=== PATIENT | female | born 1980 | race Caucasian/White ===

== ENCOUNTER 2025-03-23 13:38 | Emergency (ER) | payer OTHER, SELFPAY ==
[2025-03-23 13:46] VITALS: BP 114/69; PULSE 87; TEMP 37.2; O2SAT 99; BMI 38.1
[2025-03-23 13:50] VITALS: BP 114/69
[2025-03-23 13:59] VITALS: O2SAT 98
[2025-03-23 14:00] VITALS: O2SAT 99
--- NOTE | 2025-03-23 14:02 | ECG_ITS ---
[facility] Test Date: 2025-03-23 Pat Name: ZAIRA MIGUEL Department: Room: - Gender: Female Shrinker: : 1980 Requested By: [id number] Order Number: [id number] Reading MD: Jose Hair Measurements Intervals [place] Rate: 69 P: 51 UT: 178 QRS: 93 QRSD: 88 T: 79 QT: 400 QTc: 420 Interpretive Statements 1100 Sinus rhythm 1470 with occasional supraventricular premature complexes 7102 Moderate right axis deviation 8102 Low QRS voltage in chest leads 9140 abnormal rhythm ECG No previous ECG available for comparison Electronically Signed On 03-23-2025 15:54:52 EST by Jose Hair
[2025-03-23 14:08] LABS: Hematocrit 39.5 % (36.0-48.0); Hemoglobin 13.5 g/dL (12.0-16.0); Immature Granulocytes Abs Auto 0.02 10^3/uL (0.00-0.03); Immature Granulocytes Pct Auto 0.3 % (0.0-0.5); Lymphocytes Absolute Auto 1.8 10^3/uL (1.2-3.8); Mean Corpuscular HGB Conc 34.2 g/dL (29.9-35.2); Mean Corpuscular Hemoglobin 31.8 pg (26.7-34.0); Mean Corpuscular Volume 92.9 fL (81.0-99.0); Platelet Count 254 10^3/uL (150-450); Red Blood Count 4.25 10^6/uL (4.20-5.40); White Blood Count 6.4 10^3/uL (4.0-11.0)
[2025-03-23] MEDS: KETOROLAC TROMETHAMINE 30 MG/ML VIAL IVP (14:18)
[2025-03-23] MEDS: 0.9 % SODIUM CHLORIDE 1,000 ML 1000 ML IV (14:20)
[2025-03-23] MEDS: PROCHLORPERAZINE 10 MG/2 ML VIAL 5 MG IV (14:20)
--- OUTSIDE RECORDS SUMMARY | 2025-03-23 14:23 | XMS_ITS | Continuity of Care Document ---
[facility] [address] [place] [address] Phone [phone] Care Team Providers Care Palliative Care Nurse Name Role Phone Holli Alfaro MD Care Team Information Receiv er Unavailable KAJAL ABRAHAM MD Care Team Information Rece iver Unavailable Holli Alfaro MD Primary Care Physician Unava ilable
--- OUTSIDE RECORDS SUMMARY | 2025-03-23 14:23 | XMS_ITS | Encounter Summary ---
Author Organization [facility] Address [address] [place] [address] Care Team Providers Care Airbrush Artist Photography Name Role Phone Ammon Hardwick MD Unavailable [phone] Amna Mancuso CLEANING AND WASHING EQUIPMENT OPERATOR Unavailable [phone] Madeline Inman DO Primary Care Provider Herbert Dyson APRN.CLEANING AND WASHING EQUIPMENT OPERATOR Unavailable Source Comments In the event this information is protected by the Federal Confidentiality of Alcohol and Drug AbusePatient Records regulations: The Federal rules restrict any use of the information to criminally investigate or prosecute any alcohol or drug abuse patient.[facility] Encounter Details DateTypeDepartmentCare Team (Latest Contact Info)Ctezxbwhzog66/23/2025 Get Medical Advice Neurology [address] [place] [address] Chris Friedman V, MD [address] [place] [address] Seizures Social History Tobacco UseTypesPacks/DayYears UsedDateSmoking Tobacco: Every TcvVvpmrwmcjp537 Started: 02/21/2003; Last attempted to quit: 02/21/2023Smokeless Tobacco: Never Alcohol UseStandard Drinks/WeekCommentsYes0 (1 standard drink = 0.6 oz pure alcohol)former alcholic- relapse 06/06/21[facility] UtilitiesAnswerDate RecordedIn the past 12 months has the [employer], [employer], oil, or water [employer] threatened to shut off services in your home?No02/13/2024Social Connection and Isolation Panel AnswerDate RecordedIn a typical week, how many times do you talk on the phone with family, friends, or neighbors?More than three times a week02/13/2024How often do you get together with friends or relatives?Three times a week02/13/2024 How often do you attend methodist or mormonism services?More than 4 times per year 02/13/2024o you belong to any clubs or organizations such as methodist groups, unions, fraternal or athletic groups, or school groups?Yes02/13/2024How often do you attend meetings of the clubs or organizations you belong to?More than 4 times per year02/13/2024re you , , , , never , or living with a partner?Living with cotlivm2002/13/2024UDIT-CAnswerDate RecordedQ1: How often do you have a drink containing alcohol?Never02/13/2024Q2: How many drinks containing alcohol do you have on a typical day when you are drinking?Patient does not drink02/13/2024Q3: How often do you have six or more drinks on one occasion?Never02/13/2024Overall Financial Resource Strain (CARDIA) AnswerDate RecordedHow hard is it for you to pay for the very basics like food, housing, medical care, and heating?Not very hard02/13/2024HQ-2AnswerDate RecordedPHQ-2 ozhsq029Finmountainstar healthcare [place] of Occupational Health - Occupational Stress QuestionnaireAnswerDate RecordedDo you feel stress - tense, restless, nervous, or anxious, or unable to sleep at night because yourmind is troubled all the time - these days?Very much02/13/2024Exercise Vital SignAnswer Date RecordedOn average, how many days per week do you engage in moderate to strenuous exercise (like a brisk walk)?1 day02/13/2024On average, how many minutes do you engage in exercise at this level?0 min02/13/2024Hunger Vital Sign AnswerDate RecordedWithin the past 12 months, you worried that your food would run out before you got the money to buymore.Never true02/13/2024Within the past 12 months, the food you bought just didn't last and you didn't have money to get more.Sometimes true02/13/2024RAPARE - TransportationAnswerDate RecordedIn the past 12 months, has lack of transportation kept you from medical appointments or from getting medications?No02/13/2024In the past 12 months, has lack of transportation kept you from meetings, work, or from getting things needed for daily living?Yes02/13/2024Housing Stability Vital SignAnswerDate RecordedIn the last 12 months, was there a time when you were not able to pay the mortgage or rent on time?Yes12/13/2022In the last 12 months, how many places have you lived? In the last 12 months, was there a time when you did not have a steady place to sleep or slept in ashelter (including now)?No12/13/2022Housing Stability Vital SignAnswerDate RecordedIn the last 12 months, was there a time when you were not able to pay the mortgage or rent on time?No02/13/2024Number of Times Moved in the Last YearNot on file02/13/2024Homeless in the Last YearNot on file02/13/2024rea Deprivation IndexAnswerDate RecordedNational Score (1-100), lower number is lower ppwh658302/10/2025State Score (1-10), lower number is lower mzkm427Data from: https://www.neighborhoodatlas.medicine.[facility] [place].edu/. Last address used for hbuczrlyrvt[address]CommentsNoSex and Gender InformationValueDate RecordedSex Assigned at PlvsoHhnssz35/09/2020 12:17 AM EDTLegal FhcVbpvmq82/02/2012 9:26 AM ESTGender UbyztyifZtxwuf40/09/2020 12:17 AM EDTSexual JlqeqhoizbzTwjjjmqo09/09/2020 12:17 AM EDTOccupationIndustry Job Start DateJob End DateUnable to work currently due to epilepsyNot on fileNot on fileNot on filedocumented as of this encounter Functional Status * Are you deaf or do you have serious difficulty hearing?AnswerDate of TjtfwfwtvpPffcuzCr63/31/2024 9:59 AM Josy Esparza RN * Are you blind or do you have serious difficulty seeing, even when wearing glasses?AnswerDate of GqzvqocghqRxflhfBo62/31/2024 9:59 AM Josy Esparza RN * Do you have serious difficulty walking or climbing stairs?AnswerDate of QsdbspthoqObpzevPv84/31/2024 9:59 AM Josy Esparza RN * Do you have difficulty dressing or bathing?AnswerDate of AssessmentAuthorNo 04/22/2024 9:59 AM Josy Esparza RN * Because of a physical, mental, or emotional condition, do you have difficulty doing errands alone such as visiting a doctor's office or shopping?AnswerDate of YdhxysqsocRyqitiFl46/31/2024 9:59 AM Josy Esparza RN documented as of this encounter Mental Status * Because of a physical, mental, or emotional condition, do you have serious difficulty concentrating, remembering, or making decisions?AnswerEntry Date QprfapNk44/31/2024 9:59 AM Josy Esparza RN documented in this encounter Plan of Treatment DateTypeDepartmentCare Team (Latest Contact Info)Vvebkgfwjcn89/20/2026 3:20 PM ESTAppointment Mammography [address] [place] [address] documented as of this encounter Visit Diagnoses Not on filedocumented in this encounter Care Teams Team MemberRelationshipSpecialtyStart DateEnd Date Madeline Inman DO PCP - GeneralFamily Medicine11/30/20 Amomn Hardwick MD ReferringFamily Medicine12/06/18 Amna Mancuso CNP ReferringFamily Viwpwgqy56/14/19 Herbert Dyson, XAVIER.CLEANING AND WASHING EQUIPMENT OPERATOR [address] [place], [place] [id number] Care PartnerFamily Medicine07/25/24documented as of this encounter
--- OUTSIDE RECORDS SUMMARY | 2025-03-23 14:23 | XMS_ITS | Clinical Summary ---
Author Organization [facility] Address [address] [place] [address] Phone Care Team Providers Care Client Services Account Manager Name Role Phone Madeline Inman DO Primary Care Provider [phone] Selwyn Ardon MD Unavailable Allergies No known active allergies Medications MedicationSigDispense QuantityRefillsLast FilledStart DateEnd DateStatus naloxone (Narcan) 4 mg/0.1 mL nasal spray INHALE 0.1 ML other into the nostril for signs of accidental overdose 1 at 2 unit box09/30/2020ctive lacosamide (Vimpat) 200 mg tablet tablet Take 1 tablet (200 mg) by mouth 2 times a day.10/21/2014ctive topiramate (Topamax) 200 mg tablet Take 1 tablet (200 mg) by mouth twice a day. aware to take on day of procedure Active methylPREDNISolone (Medrol Dospak) 4 mg tablets Take by mouth. Follow schedule on package instructionsActive ARIPiprazole (Abilify) 15 mg tablet Take 1 tablet (15 mg) by mouth once daily.02/05/2023ctive clonazePAM (KlonoPIN) 0.5 mg tablet Indications:panic disorderTake 1 tablet by mouth every 12 hours if needed for anxiety.12/28/2022ctive FLUoxetine (PROzac) 40 mg capsule Take 1 capsule (40 mg) by mouth once daily.12/22/2022ctive hydrocortisone (Anusol-HC) 2.5 % rectal cream USE PER RECTUM TWICE A DAYActive meloxicam (Mobic) 15 mg tablet Indications:Resume 03/21/23Take 1 tablet (15 mg) by mouth once daily.02/20/2023 Active oxyCODONE-acetaminophen (Percocet) 5-325 mg tablet Take 1 tablet by mouth every 6 hours if needed.12/06/2022ctive traZODone (Desyrel) 50 mg tablet Take 1 tablet (50 mg) by mouth once daily at bedtime.02/05/2023ctive gabapentin (Neurontin) 800 mg tablet Take 1 tablet (800 mg) by mouth 4 times a day.02/16/2023ctive lacosamide (Vimpat) 50 mg tablet TAKE 2 TABLETS BY MOUTH DAILY WITH BREAKFAST AND 1 TABLET DAILY AT BEDTIME 02/07/2023ctive topiramate (Topamax) 100 mg tablet Take 1 tablet (100 mg) by mouth 3 times a day.02/16/2023ctive ondansetron (Zofran) 4 mg tablet Indications:Primary osteoarthritis of right hipTake 1 tablet (4 mg) by mouth every 8 hours if needed for nausea or vomiting. 12 tablet 03/14/2023 4:43 PM EST03/14/2023ctive cyclobenzaprine (Flexeril) 10 mg tablet Indications:Primary osteoarthritis of right hipTake 0.5 tablets (5 mg) by mouth 3 times a day. 21 tablet 03/14/2023 4:43 PM EST03/14/2023ctive aspirin 81 mg chewable tablet Indications:Primary osteoarthritis of right hipChew 1 tablet (81 mg) in mouth 2 times a day. 60 tablet 03/14/2023 4:43 PM EST03/14/2023ctive apixaban (Eliquis) 5 mg (74 tabs) tablet Indications:Single subsegmental pulmonary embolism without acute cor pulmonale, Acute chest painTake 2 tablets (10 mg) by mouth 2 times a day for 7 days, then take 1 tablet (5 mg) by mouth 2 times a day. 74 tablet 02/12/2024ctive amoxicillin (Amoxil) 500 mg capsule Indications:S/P total right hip arthroplastyTake 4 capsules by mouth 1 hour before dental procedure and none after 4 capsule 5Active SUMAtriptan (Imitrex) 50 mg tablet SUMAtriptan Succinate 50 MG Oral Tablet Quantity: 9 Refills: 0 Start : 28-Sep-2014 Erompu98iscontinued(Med List Cleanup) albuterol (Ventolin HFA) 90 mcg/actuation inhaler Ventolin HFA 108 (90 Base) MCG/ACT Inhalation Aerosol Solution Quantity: 18 Refills: 0 Start : 01-Sep-2014 Nkuijz51iscontinued(Med List Cleanup) Active Problems ProblemNoted DateDiagnosed DateOA (osteoarthritis) of hip03/14/2023egenerative joint disease of right hip02/06/2023Acne1nxiety /08/2023 Cervical spondylosis without tqqdbabqsi74/08/2545Tmzqqikmqm01/08/2023 Wsqviyabpxws64/08/2023rand mal seizure jwwcbnyh28/08/2023Hypercholesteremia 01/28/2023Hypertrophy of vicdvp2101/28/2023Infection due to corynebacterium ocuszqrajxpc52/08/2324Udwlaxjl95/08/2023Open fracture of middle phalanx of ojwshr9701/28/2023Opioid use disorder, severe, gzertzqerb69/08/2023Reactive airway xmzxtpb3201/28/2023Spondylosis without myelopathy or njzlcsvrhfoht61/08/2023PTSD (post-traumatic stress disorder)01/28/2023Other benign neoplasm of skin of unspecified part of face01/28/2023Hip abductor hkoeddooid01/08/2023 Immunizations ImmunizationAdministration DatesNext DueTdap vaccine, age 7 year and older (BOOSTRIX, ADACEL)08/23/2020 Family History Medical HistoryRelationNameCommentsAlcohol abuseBrotherdrug addictionBrother Alcohol abuseMotherDepressionMotherbipolar affective disorder, current episode manic, current episode severity unspecifiedMotherdrug addictionMotherAlcohol abuseMother's Brotherbipolar affective disorder, current episode manic, current episode severity unspecifiedMother's Brotherdrug addictionMother's Brother Alcohol abuseMother's Sisterbipolar affective disorder, current episode manic, current episode severity unspecifiedMother's Sisterdrug addictionMother's Sister RelationNameStatusCommentsBrotherMotherMother's BrotherMother's Sister Social History Tobacco UseTypesPacks/DayYears UsedDateSmoking Tobacco: VmeazzHtmlzxacte133 02/21/2003 - 02/21/2023Smokeless Tobacco: Never Tobacco Cessation:Counseling Given: Not Answered Alcohol UseStandard Drinks/WeekCommentsNever0 (1 standard drink = 0.6 oz pure alcohol)OASIS D0700: Social IsolationAnswerDate RecordedFrequency of experiencing loneliness or udilnetoiCycyl21/13/2023OASIS A1250: Transportation AnswerDate RecordedLack of Transportation (Medical)No04/04/2023Lack of Transportation (Non-Medical)No04/04/2023atient Unable or Declines to RespondNo 04/04/2023OASIS B1300: Health LiteracyAnswerDate RecordedFrequency of needing help to read materials from doctor or salbzfinUzcci95/13/2023UDIT-CAnswerDate RecordedQ1: How often do you have a drink containing alcohol?Never03/14/2023Q2: How many drinks containing alcohol do you have on a typical day when you are drinking?Patient does not drink03/14/2023Q3: How often do you have six or more drinks on one occasion?Never03/14/2023Overall Financial Resource Strain (CARDIA) AnswerDate RecordedHow hard is it for you to pay for the very basics like food, housing, medical care, and heating?Not hard at all03/14/2023HQ-2AnswerDate RecordedPatient Health Questionnaire-2 Zisfq46805/14/2022RAPARE - Transportation AnswerDate RecordedIn the past 12 months, has lack of transportation kept you from medical appointments or from getting medications?No03/14/2023In the past 12 months, has lack of transportation kept you from meetings, work, or from getting things needed for daily living?No03/14/2023Housing Stability Vital SignAnswer Date RecordedIn the last 12 months, was there a time when you were not able to pay the mortgage or rent on time?No03/14/2023In the last 12 months, how many places have you lived?In the last 12 months, was there a time when you did not have a steady place to sleep or slept in [facility] (including now)?No 3CommentsNoSex and Gender InformationValueDate RecordedSex Assigned at FsstiQxdobx18/23/2024 9:33 AM ESTLegal AwaCgdpoa67/25/2022 4:48 PM ESTGender RgshiavyCrpqnz88/23/2024 9:33 AM ESTSexual OrientationStraight 03/15/2024 9:33 AM EST Last Filed Vital Signs Vital SignReadingTime TakenCommentsBlood Yfbkoytf454/7302/12/2024 4:22 AM EDT Lejtg919902/12/2024 4:22 AM QDGNfmciabsgnl42.4 ??C (97.5 ??F)02/11/2024 11:49 PM EDTRespiratory Jrww7287 4:22 AM EDTOxygen Fdjytjymns55%02/12/2024 4:22 AM EDTInhaled Oxygen Concentration--Wlqkim24.7 kg (200 lb)02/11/2024 11:49 PM DPJOeekzs400 cm (5' 3 )02/11/2024 11:49 PM EDTBody Mass Index35.431 11:49 PM EDT Plan of Treatment DateTypeDepartmentCare Team (Latest Contact Info)Biomowmztph51/05/2026 3:15 PM ESTOffice Visit [facility] [address] [address] Marco Sanders MD [address] [facility], [address] [place] [address] Health MaintenanceDue DateLast DoneCommentsCT Ynlivpdmdsao49/19/1980Colonoscopy 1979Colorectal Cancer Vutrugnjs52/19/1980FIT-DNA (Cologuard)1979FIT 1980HIV Dbupvrvjm34/19/1980Lipid Panel1979 5893Addpjrffaowns80/19/1980 Yearly Adult Txvygskp83/19/1980MMR Vaccines (1 of 1 - Standard series)11/08/1980 Hepatitis C Gibrjchzs89/19/1998Hepatitis B Vaccines (1 of 3 - 19+ 3-dose series) 11/08/1998HPV/Jkdktz3811/08/2000HPV Vaccines (1 - 3-dose standard series) 11/08/20068997Ufgrwmibb78/12/202506/03/2024, 10/03/2023, 06/07/2022, Additional history existsInfluenza Vaccine (#1)502/, 04/25/2018, 12/11/2016, Additional history existsCOVID-19 Vaccine ( - season) 2024ervical Cancer Teclidqmf32/21/2026Pap Smear/, 05/01/2011Pneumococcal Vaccine: Pediatrics and At-Risk Adult Patients (3 of 3 - PCV20 or PCV21), 01/11/2015Zoster Vaccines (1 of 2) 11/08/2029DTaP/Tdap/Td Vaccines (3 - Td or Tdap)/06/2020, 06/05/2014 Hepatitis A VaccinesAged Out10/11/2018No longer eligible based on patient's age to complete this topicHIB VaccinesAged OutNo longer eligible based on patient's age to complete this topicIPV VaccinesAged OutNo longer eligible based on patient's age to complete this topicMeningococcal VaccineAged OutNo longer eligible based on patient's age to complete this topicRotavirus VaccinesAged Out No longer eligible based on patient's age to complete this topic Medical Devices ImplantedTypeAreaManufacturerDevice IdentifierShelf Expiration DateModel / Serial / LotJuggerknot, 2.9mm, Dbl Loaded, P2 Max Braid, W/ Tapered Needle - [id number] Implanted:Qty: 1 on 03/14/2023 by Marco Sanders MD at [facility] ImplantRight: HipBIOMET [id number] / / [id number] Cup, Sector, Gripton, Size 54mm - [id number] Implanted:Qty: 1 on 03/14/2023 by Marco Sanders MD at [facility] Joint HipRight: [id number] / / [id number], Altrx, Neurtal, 36 X 54mm - [id number] Implanted:Qty: 1 on 03/14/2023 by Marco Sanders MD at [facility] Joint HipRight: [id number] / / [id number] Stem, Corail2, Std, Size 9 - [id number] Implanted:Qty: 1 on 03/14/2023 by Marco Sanders MD at [facility] Joint HipRight: [id number] / / [id number] Head, Ceramic 36 +1.5 - [id number] Implanted:Qty: 1 on 03/14/2023 by Marco Sanders MD at [facility] Joint HipRight: [id number] / / [id number] Positive [place] - [id number] Implanted:Qty: 1 on 03/14/2023 by Marco Sanders MD at [facility] JointRight: [id number] / / [id number] Cancellous 6.5 X 30 - [id number] Implanted:Qty: 1 on 03/14/2023 by Marco Sanders MD at [facility] ScrewRight: [id number] / / [id number] Procedures Procedure NamePriorityDate/TimeAssociated DiagnosisCommentsCONVERTED RELATIONSHIP ADVISOR XBRLKQJVBuuakfr02/09/2012 12:00 AM EST from Last 3 Months or Most Recently Relevant to Health Maintenance Results * CONVERTED RELATIONSHIP ADVISOR CYTOLOGY (05/01/2011 12:00 AM EST)ComponentValueRef RangeTest MethodAnalysis TimePerformed AtPathologist SignaturePathology Report ? Date of Procedure: ??05/01/2011 ? Pathologist: Date Reported: 05/03/2011 Date Received: ??05/02/2011 Submitting Physician: Conversion ? Other Related Clinical Data ?Additional data/reports from an outside/reference lab may be ? available on this specimen/case. ? Please contact the lab if you need additional information. - COMMENT ?? SPECIMEN SENT FOR HPV TESTING PER CLINICIAN'S REQUEST. ??A SEPARATE REPORT W ILL FOLLOW. FINAL CYTOLOGICAL INTERPRETATION Satisfactory for evaluation. Transformation zone insufficient. Negative for squamous intraepithelial lesion or malignancy. Fungal organisms morphologically c/w Yolanda species. - SCREENED BY: SHANIQUE PACHECO (ASCP) ? Note: ??Pap smear testing is a screening procedure and subject to both false negative and false positive results as evidenced by published data. Your patient's test result should be interpreted in this context, together with patient's history and clinical findings. ? - Signed by: ALISSA MUIR ?05/03/11 Electronically Signed Out By [facility], Cytology/ By the signature on this report, the individual or group listed as making the Final Interpretation/Diagnosis certifies that they have reviewed this case. Educational Note: Cervical cytology is a screening procedure primarily for squamous cancers and precursors and has associated false-negative and false-positive results as evidenced by published data. ??Your patient's test should be interpreted in this context, together with patient's history and clinical findings. ??Regular sampling and follow-up of unexplained clinical signs and symptoms are recommended to minimize false negative results. Clinical History Date of Last Menstrual Period: ? (Not Entered) - HISTORY & COMMENTS LMP: 01/01 ? HPV ordered ? Source of Specimen A: Unknown Part Type [facility] Department of Pathology [id number] [facility] COPATHCONVERTED FINAL DIAGNOSISSatisfactory for evaluation. Transformation zone insufficient. Negative for squamous intraepithelial lesion or malignancy. Fungal organisms morphologically c/w Yolanda species. - SCREENED BY: SHANIQUE PACHECO (ASCP) ? Note: ??Pap smear testing is a screening procedure and subject to both false negative and false positive results as evidenced by published data. Your patient's test result should be interpreted in this context, together with patient's history and clinical findings. ? - Signed by: ALISSA MUIRD ?05/03/11 [facility] COPATHCONVERTED CLINICAL DIAGNOSIS-HISTORY- HISTORY & COMMENTS LMP: 01/01 ? HPV ordered ? [facility] COPATHCONVERTED SLIDE-BLOCK DESCRIPTION- TISSUES - ??1. CERVICAL THIN PREP ?- [facility] COPATHCONVERTED OTHER RELATED CLINICAL DATA?Additional data/reports from an outside/reference lab may be ? available on this specimen/case. ? Please contact the lab if you need additional information. - COMMENT ?? SPECIMEN SENT FOR HPV TESTING PER CLINICIAN'S REQUEST. ??A SEPARATE REPORT W ILL FOLLOW. [facility] COPATHCONVERTED REPORT COMMENTSSt Avery Case # [id number] ?DOS: 05/01/11 ? - ORD PHYSICIAN: Bartolome Pino MD ? - ORD PROCEDURES - ? CYTO PAP TLP MAN SCR /1 ? - COPIES TO: ? Bartolome Pino ??MD ? - Status History - ? ENT ? 05/02/11 1331 ??KENROY RIVERA ? DIAG ?05/03/11 1405 ??ALISSA MUIR ? SOUT ?05/03/11 1437 ??ISADORA,ALISSA M ?- Kamari Conversion Report - [facility] COPATHCONVERTED FINAL REPORT PDF LINK TO COPY AND PASTE \copathshare\copath\PDF \[id number].pdfLEH[facility]LEY [facility] COPATHSpecimen (Source) Anatomical Location / LateralityCollection Method / VolumeCollection Time Received TimeUnrecognized Part Type 1:31 PM EST Narrative Authorizing ProviderResult TypeResult StatusCopath ConversionLAB CYTOLOGY ORDERABLESFinal ResultPerforming OrganizationAddressCity/State/ZIP CodePhone Number [facility] COPATH [address] [place] [address] from Last 3 Months or Most Recently Relevant to Health Maintenance Insurance * Guarantor: Jerica Estrada TypeRelation to PatientDate of BirthPhone Billing AddressPersonal/QcykrwHlqq44/[birth year][address] [place] [address] * Guarantor: Jerica Estrada TypeRelation to PatientDate of BirthPhone Billing AddressPersonal/CzzmraNyjn51/[birth year][address] [place] [address] Advance Directives For more information, please contact: [phone] (Available ) * Full Code (Latest Code Status on File) Date ActivatedDate EuycyawlxglPqgamgqj33/22/2023 3:37 PM03/15/2023 12:43 PM QuestionAnswerCommentsPlan of Care:* Code Status Discussion Completed Decision Maker:* Patient Care Teams Team MemberRelationshipSpecialtyStart [place] [address] [place] [address] PCP - General12/06/22 [place] [address] [phone] Referring PhysicianHematology and Vtjvbqjt69/25/24
--- OUTSIDE RECORDS SUMMARY | 2025-03-23 14:23 | XMS_ITS | Encounter Summary ---
Author Organization [facility] Address [address] [place] [address] Care Team Providers Care Hotel Concierge Name Role Phone Ammon Hardwick MD Unavailable [phone] Amna Mancuso PROTOTYPE ENGINEER MANAGER Unavailable [phone] Madeline Inman DO Primary Care Provider Herbert Dyson APRN.PROTOTYPE ENGINEER MANAGER Unavailable Source Comments In the event this information is protected by the Federal Confidentiality of Alcohol and Drug AbusePatient Records regulations: The Federal rules restrict any use of the information to criminally investigate or prosecute any alcohol or drug abuse patient.[facility] Reason for Visit * ReasonCommentsSeizures Encounter Details DateTypeDepartmentCare Team (Latest Contact Info)Yzecclmnvfr06/01/2025Telephone Neurology [address] [place] [address] Chris Friedman V, MD [address] [place] [address] Seizures Social History Tobacco UseTypesPacks/DayYears UsedDateSmoking Tobacco: Every RjsKcvpkmexox345 Started: 02/21/2003; Last attempted to quit: 02/21/2023Smokeless Tobacco: Never Alcohol UseStandard Drinks/WeekCommentsYes0 (1 standard drink = 0.6 oz pure alcohol)former alcholic- relapse 06/06/21[facility] UtilitiesAnswerDate RecordedIn the past 12 months has the [employer], [employer], oil, or water [employer] threatened to shut off services in your home?No02/13/2024Social Connection and Isolation Panel AnswerDate RecordedIn a typical week, how many times do you talk on the phone with family, friends, or neighbors?More than three times a week02/13/2024How often do you get together with friends or relatives?Three times a week02/13/2024 How often do you attend pentecostalism or quaker services?More than 4 times per year 02/13/2024o you belong to any clubs or organizations such as pentecostalism groups, unions, fraternal or athletic groups, or school groups?Yes02/13/2024How often do you attend meetings of the clubs or organizations you belong to?More than 4 times per year02/13/2024re you , , , , never , or living with a partner?Living with ggbuzur2102/13/2024UDIT-CAnswerDate RecordedQ1: How often do you have a [...] medical care, and heating?Not very hard02/13/2024HQ-2AnswerDate RecordedPHQ-2 [id number] [place] of Occupational Health - Occupational Stress QuestionnaireAnswerDate [...] steady place to sleep or slept in [facility] (including now)?No12/13/2022Housing Stability Vital SignAnswerDate RecordedIn the last 12 months, was there a time when you were not able to pay the mortgage or rent on time?No02/13/2024Number of Times Moved in the Last YearNot on file02/13/2024Homeless in the Last YearNot on file02/13/2024rea Deprivation IndexAnswerDate RecordedNational Score (1-100), lower number is lower vzci173002/10/2025State Score (1-10), lower number is lower wmup345Data from: https://www.neighborhoodatlas.medicine.[facility].edu/. Last address used for [address] LyonsCommentsNoSex and Gender InformationValueDate RecordedSex Assigned at HsuoeGrjdlu43/09/2020 12:17 AM EDTLegal ZciOykotd49/02/2012 9:26 AM ESTGender XyicgxesOtkrxj93/09/2020 12:17 AM EDTSexual ZvjxptapjlkSvfklhhp43/09/2020 12:17 AM EDTOccupationIndustry Job Start DateJob End DateUnable to work currently due to epilepsyNot on fileNot on fileNot on filedocumented as of this encounter Functional Status * Are you deaf or do you have serious difficulty hearing?AnswerDate of VbxdnudvutPhmzdoXc62/31/2024 9:59 AM Josy Esparza RN * Are you blind or do you have serious difficulty seeing, even when wearing glasses?AnswerDate of EcvsdroxkiHavwbrKg80/31/2024 9:59 AM Josy Esparza RN * Do you have serious difficulty walking or climbing stairs?AnswerDate of IivyagsqnfKylpasKj37/31/2024 9:59 AM Josy Esparza RN * Do you have difficulty dressing or bathing?AnswerDate of AssessmentAuthorNo 04/22/2024 9:59 AM Josy Esparza RN * Because of a physical, mental, or emotional condition, do you have difficulty doing errands alone such as visiting a doctor's office or shopping?AnswerDate of NqazvgodybKxjxuxDu38/31/2024 9:59 AM Josy Esparza RN documented as of this encounter Mental Status * Because of a physical, mental, or emotional condition, do you have serious difficulty concentrating, remembering, or making decisions?AnswerEntry Date PqvpheLd64/31/2024 9:59 AM Josy Esparza RN documented in this encounter Miscellaneous Notes * Telephone Encounter - Celine Sahni - 03/23/2025 12:46 PM EST Seizure activity: Name of Caller : Jerica Merced Estrada Relationship to patient: Self Contact phone number: [phone] Date of seizure: 03/23/25 Duration: 30-45 seconds - patient has had 3 seizures today Back to Baseline (Yes/No): no, seizures are happening more frequently Emergency treatment needed (Yes/No): no Patient of Dr. Friedman documented in this encounter Plan of Treatment DateTypeDepartmentCare Team (Latest Contact Info)Eyspqzskslg97/20/2026 3:20 PM ESTAppointment Mammography [address] [place], [place] [id number] documented as of this encounter Visit Diagnoses Not on filedocumented in this encounter Care Teams Team MemberRelationshipSpecialtyStart DateEnd Date Madeline Inman DO PCP - GeneralFamily Medicine11/30/20 Ammon Hardwick MD ReferringFamily Medicine12/06/18 Amna Mancuso CNP ReferringFamily Amfkqxig80/14/19 Herbert Dyson APRN.[place] [address] [place] [address] Care PartnerFamily Medicine07/25/24documented as of this encounter
--- OUTSIDE RECORDS SUMMARY | 2025-03-23 14:23 | XMS_ITS | Clinical Summary ---
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 indicate increased risk for diabetes (prediabetes). Fasting plasma glucose results greater than or equal to 126 mg/dL meet the criteria for diagnosis of diabetes. In the absence of unequivocal hyperglycemia, results should be confirmed by repeat testing. In a patient with classic symptoms of hyperglycemia or hyperglycemic crisis, random plasma glucose results greater than or equal to 200 mg/dL meet the criteria for diagnosis of diabetes. Reference: Standards of Medical Care in Diabetes 2016, [place] [employer]. Diabetes Care. 2016.39(Suppl 1). UCK702 - 21 mg/dL04/19/2024 9:10 PM [facility] Creatinine0.780.58 - 0.96 mg/dL04/19/2024 9:10 PM [facility] CDQKpwwro231200 - 144 mmol/L106/20/2023 9:10 PM [facility] LABPotassium3.93.7 - 5.1 mmol/L106/20/2023 9:10 PM [facility] EYAVvulanlv780(H)98 - 107 mmol/L106/20/2023 9:10 PM [facility] OKZEE870(L)22 - 30 mmol/L106/20/2023 9:10 PM [facility] LABAnion Jhs975 - 15 mmol/L106/20/2023 9:10 PM [facility] LABEstimated Glomerular Filtration Rate96>=60 mL/min/1.73m 04/19/2024 9:10 PM [facility] LABComment:Estimated Glomerular Filtration Rate (eGFR) is calculated using the 2020 CKD-EPI creatinine equation. This equation utilizes serum creatinine, sex, and age as parameters. The creatinine assay has traceable calibration to isotope dilution- mass spectrometry. Refer to KDIGO guidelines for clinical interpretation. In patients with unstable renal function, e.g. those with acute kidney injury, the eGFRmay not accurately reflect actual GFR.Specimen (Source)Anatomical Location / LateralityCollection Method / VolumeCollection TimeReceived TimeBloodBLOOD SPECIMEN / UnknownVenipuncture / Dsjgnoq4004/19/2024 8:18 PM EST04/19/2024 8:25 PM EST Narrative Authorizing ProviderResult TypeResult StatusFirdaws Kelsey HAGEN-CLABORATORYFinal ResultPerforming OrganizationAddressCity/State/ZIP CodePhone Number [facility] [address] [phone], * SHIRA SCREENING W EMILEE (10/03/2023 4:17 PM EDT)Anatomical RegionLaterality ModalityBreastMammographySpecimen (Source)Anatomical Location / Laterality Collection Method / VolumeCollection TimeReceived Time10/03/2023 4:17 PM EDT Impressions 10/05/2023 9:54 AM EDT IMPRESSION: NEGATIVE There is no mammographic evidence of malignancy. A 1 year screening mammogram is recommended. Sindhu najera/chevy:10/05/2023 09:54:01 Pipe Washer(s): Bianca ??RT Abbi(R)(M), [facility] letter sent: Normal over 40 Mammogram BI-RADS: 1 Negative Multiple national specialty organizations have released breast cancer screening guidelines for women at average risk for developing breast cancer - guidelines that are based on both evidence and opinion, yet differ on when to start and how often to screen for breast cancer. With representation from Breast Imaging, Internal Medicine, Women's Health, Family Medicine, and Medical/Surgical Oncology, the [facility] has carefully reviewed the data and reached the following consensus: 1) All women should engage in shared decision-making with their providers to decide when to start and how often to screen; 2) All women should have the opportunity to start screening mammography at age 40; 3) For women ages 45-55, we recommend annual screening mammograms; 4) For women ages 55 and over, we support both the transition from an annual to a biennial interval if this aligns more with patient's values and preferences, or continuation with annual screening; 5) All women should discuss with their providers when to stop screening mammograms. Thermometer Production Worker: Chevy Transcribe Date/Time: Oct 03 2023 ??3:36P Dictated by: SINDHU EDMONDS MD This examination was interpreted and the report reviewed and electronically signed by: SINDHU EDMONDS MD on Oct 05 2023 ??9:54AM ??EST Narrative 10/05/2023 9:54 AM EDT * * *Final Report* * * DATE OF EXAM: Oct 03 2023 ??4:17PM ?? CHW ?? 0582 ??- ??SHIRA SCREENING W EMILEE ??/ PROCEDURE REASON: Encounter for screening mammogram for breast cancer ? * * * * Physician Interpretation * * * * RESULT: #[id number] - SHIRA SCREENING W EMILEE BILATERAL DIGITAL SCREENING MAMMOGRAM TOMOSYNTHESIS WITH CAD: 10/03/2023 HISTORY: Encounter For Screening Mammogram For Breast Cancer / Screening Mammogram-Patient reports NO symptoms. RESULT: TECHNIQUE: The study was acquired using full field digital technology and interpreted from soft copy. Digital Breast Tomosynthesis (DBT) images were obtained and used to assist in the interpretation of this examination. Current study was also evaluated with a Computer Aided Detection (CAD). Comparison is made to exam dated: 09/15/2021 mammogram - [facility]. ??There are scattered areas of fibroglandular density. No significant masses, calcifications, or other findings are seen in either breast. There has been no significant interval change. Procedure Note Provider, [facility] [place] - 10/05/2023 * * *Final Report* * * DATE OF EXAM: Oct 03 2023 4:17PM MEGANW 0582 - SHIRA SCREENING W EMILEE / PROCEDURE REASON: Encounter for screening mammogram for breast cancer * * * * Physician Interpretation * * * * RESULT: #[id number] - SHIRA SCREENING W EMILEE BILATERAL DIGITAL SCREENING MAMMOGRAM TOMOSYNTHESIS WITH CAD: 10/03/2023 HISTORY: Encounter For Screening Mammogram For Breast Cancer / Screening Mammogram-Patient reports NO symptoms. RESULT: TECHNIQUE: The study was acquired using full field digital technology and interpreted from soft copy. Digital Breast Tomosynthesis (DBT) images were obtained and used to assist in the interpretation of this examination. Current study was also evaluated with a Computer Aided Detection (CAD). Comparison is made to exam dated: 09/15/2021 mammogram - [facility]. There are scattered areas of fibroglandular density. No significant masses, calcifications, or other findings are seen in either breast. There has been no significant interval change. IMPRESSION IMPRESSION: NEGATIVE There is no mammographic evidence of malignancy. A 1 year screening mammogram is recommended. Sindhu najera/chevy:10/05/2023 09:54:01 Pipe Washer(s): RT Mathieu(R)(M), [facility] letter sent: Normal over 40 Mammogram BI-RADS: 1 Negative Multiple national specialty organizations have released breast cancer screening guidelines for women at average risk for developing breast cancer - guidelines that are based on both evidence and opinion, yet differ on when to start and how often to screen for breast cancer. With representation from Breast Imaging, Internal Medicine, Women's Health, Family Medicine, and Medical/Surgical Oncology, the [facility] has carefully reviewed the data and reached the following consensus: 1) All women should engage in shared decision-making with their providers to decide when to start and how often to screen; 2) All women should have the opportunity to start screening mammography at age 40; 3) For women ages 45-55, we recommend annual screening mammograms; 4) For women ages 55 and over, we support both the transition from an annual to a biennial interval if this aligns more with patient's values and preferences, or continuation with annual screening; 5) All women should discuss with their providers when to stop screening mammograms. Thermometer Production Worker: Cehvy Transcribe Date/Time: Oct 03 2023 3:36P Dictated by: SINDHU EDMONDS MD This examination was interpreted and the report reviewed and electronically signed by: SINDHU EDMONDS MD on Oct 05 2023 9:54AM EST Authorizing ProviderResult TypeResult StatusDuyen Burnside DOMAM-PAMAFinal Result * PAP TEST (01/11/2023 1:17 PM EDT)ComponentValueRef RangeTest MethodAnalysis TimePerformed AtPathologist SignatureCase ReportGynecologic Cytology Report ? Case: [id number] ? Authorizing Provider: ??Trevor Aguila, ??Collected: ? 01/11/2023 01:17 PM ? MD ? Ordering Location: ? OB/Gynecology ?Received: ?01/11/2023 04:50 PM ? First Screen: ?Hood, Tony, CT, ASCP ? Specimen: ?Pap Test, ThinPrep, Cervix ? 01/18/2023 3:29 PM [facility] LABSpecimen Adequacy Satisfactory for xmgbqbcbdwgadr08/28/2023 3:29 PM [facility] LABInterpretationNegative for intraepithelial lesion or malignancy. 01/18/2023 3:29 PM [facility] at 1529 EDTOther Interpretation(s) Predominance of coccobacilli consistent with shift in vaginal flora01/18/2023 3:29 PM [facility] LABClinical HistoryRoutine Exam 01/18/2023 3:29 PM [facility] LABLMP 3:29 PM [facility] LABHPV ReflexYes HPV01/18/2023 3:29 PM [facility] LABPap DisclaimerThe Pap Smear is a screening test for cervical cancer. False negative results occur with all screening tests, emphasizing the need for rescreening at recommended intervals, and clinical correlation.01/18/2023 3:29 PM [facility] LABPerforming Lab Technical component, extension agent screening performed at [facility], [facility] [address] CLIA# [id number] Diagnostic interpretation performed at [facility], [facility] [address] CLIA# [id number] Tobacco Scrap Sifter: Johnson Tapia M.D.01/18/2023 3:29 PM [facility] LABSpecimen (Source)Anatomical Location / Laterality Collection Method / VolumeCollection TimeReceived TimeSterile Fluid/Body Fluid CERVICAL / UnknownNon Blood / Gjnxkfp4601/11/2023 1:17 PM EDT01/11/2023 4:50 PM EDT Narrative Authorizing ProviderResult TypeResult StatusPhibipin Aguila MDCYTOLOGYFinal ResultPerforming OrganizationAddressCity/State/ZIP CodePhone Number [facility] [address] [phone] [place] [phone], * HIV 1 2 COMBO(AG/AB),WITH REFLEX TO DIFFERENTIATION (01/13/2022 12:54 PM EDT) ComponentValueRef RangeTest MethodAnalysis TimePerformed AtPathologist SignatureHIV 12 Combo (Ag/Ab)QjuhronntxmEsjknavwmxd45/25/2022 11:12 AM EDT [facility]-1/2 AB (Confirmatory)01/15/2022 11:12 AM [facility] LABComment:Test not indicated.HIV Lzqfdfpppklnuw78/25/2022 11:12 AM [facility] LABComment: No evidence of HIV-1 or HIV-2 infection. Should recent infection be suspected, repeat testing may be considered 2-3 weeks after this draw. [place] Rev. Code 3701.243(E): This information has been disclosed to you from confidential records protected from disclosure by state law. ??You shall make no further disclosure of this information without the specific, written, and informed release of the individual to whom it pertains or as otherwise permitted by state law. A general authorization for the release of medical or other information is not sufficient for the purpose of the release of HIV test results or diagnoses. Specimen (Source)Anatomical Location / LateralityCollection Method / Volume Collection TimeReceived TimeBloodBLOOD SPECIMEN / UnknownVenipuncture / Unknown 01/13/2022 12:54 PM EDT01/13/2022 12:54 PM EDT Narrative Authorizing ProviderResult TypeResult StatusDudeep Inman DOLABORATORYFinal ResultPerforming OrganizationAddressCity/State/ZIP CodePhone Number [facility] [address] [facility] [address] [place] [address], [place] * HEP REMOTE PANEL BL (08/25/2014 10:16 AM EDT)ComponentValueRef RangeTest MethodAnalysis TimePerformed AtPathologist SignatureHep B Core Ab, Total FoblkeeaYzgsyvcj50/05/2015 7:[facility] LABORATORYHep C Antibody XRQueliqdbKemwgbbu54/05/2015 7:10 PM [facility]IN SENDUWCFOKATmMmEozhkcxyQugujkxk96/05/2015 7:10 PM [facility]TC[facility] MAIN LABORATORYHep B Surface Ab, DktvFfwppfvhCvvtghtk16/05/2015 7:10 PM EDT [facility] LABORATORYComment:NEGATIVESpecimen (Source)Anatomical Location / LateralityCollection Method / VolumeCollection TimeReceived Time Blood specimen (specimen)BLOOD SPECIMEN / Kneeunr6308/25/2014 10:16 AM EDT 08/25/2014 10:18 AM EDT Narrative Authorizing ProviderResult TypeResult StatusBeth Celine REINAN.CNPLABORATORY Final ResultPerforming OrganizationAddressCity/State/ZIP CodePhone Number [facility] [address] [place] [address] from Last 3 Months or Most Recently Relevant to Health Maintenance Insurance Advance Directives TypeDate RecordedPatient RepresentativeExplanationAdvance Directive(s)10/11/2021 3:15 PM Care Teams Team MemberRelationshipSpecialtyStart DateEnd Date Madeline Inman DO PCP - GeneralFamily Medicine11/30/20 Ammon Hardwick MD ReferringFamily Medicine12/06/18 Amna Mancuso CNP ReferringFamily Voigppbo41/14/19 Herbert Dyson APRN.STREETSWEEPER OPERATOR [address] [place] [address] [facility]07/25/24
[2025-03-23 14:24] LABS: Alanine Aminotransferase 32 U/L (14-59); Albumin Globulin Ratio 1.0; Albumin Level 3.5 g/dL (3.4-5.0); Alkaline Phosphatase 91 U/L (46-116); Anion Gap 14.8; Aspartate Amino Transferase 22 U/L (15-37); Blood Urea Nitrogen 7.0 mg/dL (7.0-18.0); Calcium 8.8 mg/dL (8.5-10.1); Carbon Dioxide 24.0 mmol/L (21.0-32.0); Chloride 108 mmol/L (98-107); Estimated GFR (African America >60 (>=60 mL/min/1.73m^2); Estimated GFR (Non-African Ame >60 (>=60 mL/min/1.73m^2); Globulin 3.6 g/dL; Glucose 95 mg/dL (74-106); Potassium 3.8 mmol/L (3.5-5.1); Sodium 143 mmol/L (136-145); Total Protein 7.1 g/dL (6.4-8.2)
[2025-03-23 14:26] VITALS: PULSE 77
[2025-03-23 14:29] VITALS: PULSE 69
--- NOTE | 2025-03-23 14:33 | ED.SEIZURE1 ---
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 who is presenting [facility] after she has been having more frequent partial seizures when she is either moving her extremity uncontrollably or according to her just moving her tongue ,like chewing Patient also have a history of migraine and she mentioned that for the last few days she has been having some migraine headache with photosensitivity to light, no other concerns Seizure History: Yes Place: [facility] Related Data Home Medications ?Medication ?Instructions ?Recorded ?Confirmed acetaminophen 325 mg tablet 500 mg PO 12 PRN pain 03/23/25 03/23/25 (Tylenol) albuterol sulfate 90 mcg/actuation 1 inh inhalation Q6H 03/23/25 03/23/25 aerosol inhaler apixaban 2.5 mg tablet (Eliquis) 2.5 mg PO BID 03/23/25 03/23/25 celecoxib 200 mg capsule (Celebrex) 200 mg PO DAILY 03/23/25 03/23/25 clobazam 10 mg oral film 10 mg PO BID 03/23/25 03/23/25 fluoxetine 20 mg capsule 20 mg PO DAILY 03/23/25 03/23/25 folic acid 1 mg tablet 1 mg PO DAILY 03/23/25 03/23/25 gabapentin 800 mg tablet 800 mg PO TID 03/23/25 03/23/25 lacosamide 200 mg tablet 200 mg PO BID 03/23/25 03/23/25 sumatriptan succinate 50 mg tablet 50 mg PO Q2H PRN migraine headache 03/23/25 03/23/25 (Imitrex) topiramate 200 mg tablet (Topamax) 200 mg PO Q12H 03/23/25 03/23/25 trazodone 50 mg tablet 50 mg PO DAILY 03/23/25 03/23/25 vilazodone 10 mg tablet 10 mg PO DAILY 03/23/25 03/23/25 Allergies Allergy/AdvReac Type Severity Reaction Status Date / Time No Known Drug Allergies Allergy Verified 03/23/25 13:52 Review of Systems ROS Status of ROS 10 or more systems reviewed and unremarkable except as noted in history and below [facility] Social History Little interest or pleasure in doing things: not at all Feeling down, depressed, or hopeless: not at all Exam Narrative Exam Narrative: Nurses notes and vital signs reviewed and patient is not hypoxic. General: Well-appearing and in no apparent distress. Skin: Warm, dry, no pallor noted. No rash. Head: Normocephalic, atraumatic. Neck: Supple, non-tender. Eye: Pupils are equal, round and EOMI. No scleral icterus. Ears, Nose, Mouth, and Throat: Oral mucosa is moist, no posterior oropharynx erythema, uvula is mid-line Cardiovascular: Regular Rate and Rhythm without murmur, gallop or rub. Respiratory: No accessory muscle use or respiratory distress. Lungs are clear to auscultation, no wheezing, rales or rhonchi Chest Wall: no tenderness Back: No midline thoracic or lumbar vertebral tenderness. No CVA tenderness Musculoskeletal: normal ROM, no calf or popliteal tenderness, no lower extremity edema/swelling GI: Abdomen is soft, non-distended. Normal bowel sounds. No masses appreciated. No tenderness to palpation. No rebound, guarding, or rigidity noted. Neurological: A&O x4. No cranial nerve dysfunction observed. No truncal ataxia. Moves all extremities. Sensation intact. Psychiatric: Cooperative and interactive. Normal mood and affect. Constitutional Vital Signs, click to edit/add: Last Vital Signs Temp 99.0 F 03/23/25 13:46 Pulse 77 03/23/25 14:26 Resp 19 03/23/25 14:26 BP 114/69 03/23/25 13:50 Pulse Ox 99 03/23/25 14:00 O2 Del Method Room Air 03/23/25 13:59 Course Vital Signs Vital signs: Vital Signs Temperature 99.0 F 03/23/25 13:46 Pulse Rate 87 03/23/25 13:46 Respiratory Rate 18 03/23/25 13:46 Blood Pressure 114/69 03/23/25 13:46 Pulse Oximetry 99 03/23/25 13:46 Oxygen Delivery Method Room Air 03/23/25 13:46 Temperature 99.0 F 03/23/25 13:46 Pulse Rate 77 03/23/25 14:26 Respiratory Rate 19 03/23/25 14:26 Blood Pressure 114/69 03/23/25 13:50 Pulse Oximetry 99 03/23/25 14:00 Oxygen Delivery Method Room Air 03/23/25 13:59 MDM - Seizure MDM Narrative Medical decision making narrative: The patient examination right now is benign regarding any active seizure but she mentioned that she has been having this recurring partial seizures throughout the day which could be according to her exacerbated by stress, the patient medication of clobazam or clonazepam both of them are mostly due to anxiety more than a seizure but with the patient history she would benefit from 1 dose here in the ER EKG showing sinus rhythm with a heart rate of [address] elevation or depression The patient CBC and chemistry showed no acute pathology she was treated with Toradol and Compazine for the migraine [facility] and clarified that she can be given 1 dose here in the ER at the long as it documented it would not interfere with her management in there . The patient is agreeable with that plan especially that clarified to her that it would show up in her drug screen The patient is agreeable with the plan of taking 1 dose of clonazepam here before getting discharged Patient was discharged after her headache was controlled and provided with 1 dose of clonazepam The patient to follow-up with the primary care within 2 to 3 days and to come back to the ER in case of any worsening of the current symptoms or any new symptoms or concerns Lab Data Labs: Lab Results 03/23/25 Range/Units 13:58 WBC 6.4 (4.0-11.0) 10^3/uL RBC 4.25 (4.20-5.40) 10^6/uL Hgb 13.5 (12.0-16.0) g/dL Hct 39.5 (36.0-48.0) % MCV 92.9 (81.0-99.0) fL MCH 31.8 (26.7-34.0) pg MCHC 34.2 (29.9-35.2) g/dL RDW 12.7 (11.0-15.0) % Plt Count 254 (150-450) 10^3/uL MPV 9.6 (9.5-13.5) fL Neut % (Auto) 63.5 (43.0-75.0) % Lymph % (Auto) 27.8 (20.5-60.0) % Dorado % (Auto) 5.4 (1.7-12.0) % Eos % (Auto) 2.5 (0.9-7.0) % Baso % (Auto) 0.5 (0.2-2.0) % Neut # (Auto) 4.1 (1.4-6.5) 10^3/uL Lymph # (Auto) 1.8 (1.2-3.8) 10^3/uL [place] # (Auto) 0.4 (0.3-0.8) 10^3/uL Eos # (Auto) 0.2 (0.0-0.7) 10^3/uL Baso # (Auto) 0.0 (0.0-0.1) 10^3/uL Abs Immat Gran (auto) 0.02 (0.00-0.03) 10^3/uL Imm/Tot Granulo (auto) 0.3 (0.0-0.5) % Sodium 143 (136-145) mmol/L Potassium 3.8 (3.5-5.1) mmol/L Chloride 108 H (98-107) mmol/L Carbon Dioxide 24.0 (21.0-32.0) mmol/L Anion Gap 14.8 BUN 7.0 (7.0-18.0) mg/dL Creatinine 0.88 (0.55-1.02) mg/dL Est GFR ( Amer) >60 (>=60 mL/min/1.73m^2) Est GFR (Non-Af Amer) >60 (>=60 mL/min/1.73m^2) BUN/Creatinine Ratio 8.0 Glucose 95 (74-106) mg/dL Calcium 8.8 (8.5-10.1) mg/dL Total Bilirubin 0.2 (0.2-1.0) mg/dL AST 22 (15-37) U/L ALT 32 (14-59) U/L Alkaline Phosphatase 91 (46-116) U/L Total Protein 7.1 (6.4-8.2) g/dL Albumin 3.5 (3.4-5.0) g/dL Globulin 3.6 g/dL Albumin/Globulin Ratio 1.0 Serum HCG, Qual Negative (NEGATIVE) Discharge Plan Discharge Chief Complaint: Seizure Clinical Impression: Migraine, History of seizure, Anxiety Patient Disposition: Home, Self-Care Time of Disposition Decision: 14:42 Condition: Good Prescriptions / Home Meds: No Action celecoxib [Celebrex] 200 mg capsule 200 mg PO DAILY acetaminophen [Tylenol] 325 mg tablet 500 mg PO 12 PRN (Reason: pain) albuterol sulfate 90 mcg/actuation HFA aerosol inhaler 1 inh inhalation Q6H folic acid 1 mg tablet 1 mg PO DAILY lacosamide 200 mg tablet 200 mg PO BID clobazam 10 mg film 10 mg PO BID sumatriptan succinate [Imitrex] 50 mg tablet 50 mg PO Q2H PRN (Reason: migraine headache) Rx Instructions: do not exceed 4 doses per 24 hrs Eliquis 2.5 mg tablet 2.5 mg PO BID fluoxetine 20 mg capsule 20 mg PO DAILY gabapentin 800 mg tablet 800 mg PO TID topiramate [Topamax] 200 mg tablet 200 mg PO Q12H trazodone 50 mg tablet 50 mg PO DAILY vilazodone 10 mg tablet 10 mg PO DAILY Rx Instructions: must administer with a meal/food Print Language: Japanese Instructions: Migraine Headache (ED), Anxiety (ED) Additional Instructions: The patient was provided with 1 dose of clonazepam here in the ER 0.5 mg for treatment, as it would benefit her presentation, and the patient is agreeable of receiving the clonazepam and this is a clear documentation that this medication was given to the patient in the emergency room setting. The patient to follow-up with the primary care within 2 to 3 days and to come back to the ER in case of any worsening of the current symptoms or any new symptoms or concerns Referrals: Physician,Non-Staff, MD [Primary Care Provider] - 1 week
[2025-03-23] MEDS: CLONAZEPAM 0.5 MG TABLET PO (15:17)
== END 2025-03-23 15:56 | disposition home or self-care (01) ==
PROVIDERS: Emergency Provider Emergency Medicine
DX: F41.9 Anxiety disorder, unspecified (principal); G43.909 Migraine, unspecified, not intractable, without status migrainosus; R56.9 Unspecified convulsions
CPT/HCPCS: 36415; 80053; 80307; 84703; 85025; 93005; 96374; 96375; 99285; J0780; J1885